=== PATIENT | female | born 1995 | race Caucasian/White ===

== ENCOUNTER 2022-11-22 16:12 | Emergency (ER) | payer OTHER, SELFPAY ==
--- NOTE | 2022-11-22 16:59 | ED.URI ---
HPI - URI/Sore Throat General Chief Complaint: Upper Respiratory Infection Stated Complaint: congestion,cough Time Seen by Provider: 11/22/22 16:59 Source: patient and RN notes reviewed Mode of arrival: ambulatory Limitations: no limitations History of Present Illness HPI Narrative: 27 y/o female presented for c/o sinus congestion and cough for 5 days. Endorses headache and mild cough, and had body aches at the onset. She denies shortness of breath, wheezing, nausea, vomiting, diarrhea, fevers or chills at this time. Taking Sudafed, Robitussin and ibuprofen for symptoms. denies sick contacts. MD elicited complaint: cough Related Data Home Medications Medication Instructions Recorded Confirmed No Home Medications 11/22/22 11/22/22 Allergies Allergy/AdvReac Type Severity Reaction Status Date / Time No Known Allergies Allergy Verified 11/22/22 17:04 Review of Systems Review of Systems: Per HPI Exam Narrative: GENERAL: well-appearing EYES: PERRLA, conjunctivae clear ENT: Mucous membranes moist. TMs pearly feng with dull light reflex bilaterally; no tragal tenderness. Oropharynx normal without lesions or exudate, no drooling, no hoarseness, no trismus, uvula midline. CHEST: Clear to auscultation, breath sounds equal. HEART: Regular rate and rhythm. No murmur heard. SKIN: Warm, dry, no rash. NEURO: Alert and oriented x3. PSYCH: Normal mood and affect Course Course Emergency Course: Patient is aware of diagnosis, understands and agrees to treatment plan. Anticipatory guidance given. Patient agrees to follow-up as directed and is aware of reasons to seek care at the emergency department. Portions of this record may have been created with voice recognition software Level of Care: Express Care Visit Vital Signs Vital signs: Vital Signs Temperature 99 F 11/22/22 17:10 Pulse Rate 99 11/22/22 17:10 Respiratory Rate 18 11/22/22 17:10 Blood Pressure 108/69 11/22/22 17:10 Pulse Oximetry 100 11/22/22 17:10 Oxygen Delivery Room Air 11/22/22 17:10 Temperature 99 F 11/22/22 17:10 Pulse Rate 99 11/22/22 17:10 Respiratory Rate 18 11/22/22 17:10 Blood Pressure 108/69 11/22/22 17:10 Pulse Oximetry 100 11/22/22 17:10 Oxygen Delivery Room Air 11/22/22 17:10 reviewed MDM - URI/Sore Throat MDM Narrative Medical decision making narrative: Due to lack of resources, unable to test for influenza at this time. Patient verbalizes understanding. declined COVID testing. Advised supportive measures and signs and symptoms to go to the ER. Patient is appropriate for outpatient treatment and follow-up. Differential Diagnosis Differential diagnosis: Likely upper respiratory infection, sinusitis, viral infection, influenza and pharyngitis Discharge Plan Discharge Clinical Impression: Viral infection Patient Disposition: Home, Self-Care Condition: Stable Instructions: Viral Syndrome (ED) Additional Instructions: Influenza positive You should avoid crowds until you are fever free for 24 hours without the use of fever reducing medications, or the symptoms are improved Rest. Drink plenty of fluids. Tylenol 1000mg every 8 hours as needed for pain/fever Recommend Flonase spray and Zyrtec (or Claritin/Carmen) for sinus pressure/congestion over the counter Cough syrup may cause drowsiness; avoid driving or take it at night time. Follow up with your primary care provider as needed in 1-2 weeks Go to the ER for worsening symptoms or concerns Prescriptions: No Action No Home Medications Follow-up/Referrals: Angelina Abernathy PA-C [Primary Care Provider] - Time of Disposition: 17:16
[2022-11-22 17:10] VITALS: BP 108/69; PULSE 99; RESP 18; TEMP 37.2; O2SAT 100
== END 2022-11-22 17:00 | disposition home or self-care (01) ==
PROVIDERS: Emergency Provider Nurse Practitioner Family; PCP Physician Assistant Medical
DX: B34.9 Viral infection, unspecified (principal)
CPT/HCPCS: 99202; G0463

== ENCOUNTER 2024-09-10 15:40 | Emergency (ER) | payer OTHER, SELFPAY ==
[2024-09-10 15:48] VITALS: BP 121/84; PULSE 87; RESP 18; TEMP 36.6; O2SAT 100
--- NOTE | 2024-09-10 15:49 | ED.URI ---
HPI - URI/Sore Throat General Chief Complaint: Upper Respiratory Infection Stated Complaint: sore throat Time Seen by Provider: 09/10/24 15:49 Source: patient, RN notes reviewed and old records reviewed Mode of arrival: ambulatory Limitations: no limitations History of Present Illness HPI Narrative: Patient presents with complaints of sore throat for about 7 days. She reports that she has associated cough and runny nose. She has been taking Tylenol, Claritin and Sudafed for her symptoms with moderate relief. She denies any fever. She denies any chills or sweats. No difficulty swallowing. No respiratory distress. No other concerns or complaints today. Related Data Home Medications Medication Instructions Recorded Confirmed No Home Medications 11/22/22 09/10/24 Allergies Allergy/AdvReac Type Severity Reaction Status Date / Time No Known Allergies Allergy Verified 09/10/24 15:50 Review of Systems Review of Systems: All systems reviewed & are unremarkable except as noted in HPI and below Constitutional: Constitutional: Reports as per HPI and Reports no additional constitutional complaints ENT: Reports system reviewed and no additional complaints, except as documented, Reports as per HPI, Reports nasal discharge and Reports sore throat Cardiovascular: Cardiovascular: Reports no additional cardiovascular complaints Respiratory: Respiratory: Reports no additional respiratory complaints, Reports chest congestion and Reports cough Gastrointestinal: Gastrointestinal: Reports no additional gastrointestinal complaints [facility] Surgical History Surgical History History of History of open reduction and internal fixation (ORIF) procedure L 5th 2016 Family History Family History Grandparent Breast cancer Social History Social History Smoking status: Unknown if ever smoked Alcohol intake: never Substance use: never Lack of Transportation: No Lack of Food: Never True Current Housing: I Have Housing Concerned About Future Housing: No Difficulty Paying Gas/Electric Bills: No Difficulty Paying for Meds: No Currently Unemployed: No Difficulty w/ Childcare or Family Care: No Living arrangements: with family Occupation/Education: occupation Gender identity (if verbalized by the patient): Female Sexual Orientation (if Verbalized by the Patient): Straight or Heterosexual Comments At the time of my signature, I reviewed and agree with the nursing past medical, surgical, social, and family history. There is no relevant family history pertinent to the patient complaint. Exam Const: General: cooperative, no acute distress, alert and awake Orientation/consciousness: oriented to person, oriented to place and oriented to time HENMT: Head: normal to inspection Ears: TM's normal bilaterally Mouth: Yes moist mucous membranes Throat: posterior oropharynx abnormal erythema Resp: Effort & Inspection: normal respiratory effort and able to speak in complete sentences Auscultation: clear to auscultation bilaterally, no crackles, no rales, no rhonchi and no wheezes Cardio: Palpation: normal PMI Rate: regular rate Rhythm: regular rhythm Heart sounds: S1 normal heart sound present and S2 normal heart sound present Neuro: General: oriented to person, oriented to place and oriented to time Cranial nerves: Yes CN's II-XII intact bilaterally Psych: Appearance: grossly normal Thought process: Normal thought process present Insight: Good insight present (Psych) Judgement: Good judgement present (Psych) Course Course Level of Care: Express Care Visit Vital Signs Vital signs: Vital Signs Temperature 97.8 F 09/10/24 15:48 Pulse Rate 87 09/10/24 15:48 Respiratory Rate 18 09/10/24 15:48 Blood Pressure 121/
[2024-09-10 15:50] VITALS: BP 121/84; PULSE 87; RESP 18; TEMP 36.6; O2SAT 100
[2024-09-10 16:05] LABS: EDSTREPNEGPOS1 Negative (Negative)
== END 2024-09-10 16:09 | disposition home or self-care (01) ==
PROVIDERS: Emergency Provider Nurse Practitioner Family; PCP Physician Assistant Medical
DX: J06.9 Acute upper respiratory infection, unspecified (principal)
CPT/HCPCS: 87081; 87880; 99213; G0463